=== PATIENT | female | born 1975 | race Two or more races ===

== ENCOUNTER 2016-08-28 04:27 | Emergency (ER) | payer BC ==
[~2016-08-28] VITALS: Ht 165.1 cm; Wt 61.2 kg
[~2016-08-28 04:27] MED LIST: NAPROXEN375 MG ORAL; ZOFRAN4 M1 ORAL
[2016-08-28] MEDS ORDERED: NKM (04:34)
[2016-08-28 04:38] VITALS: BP 129/88
[2016-08-28] MEDS ORDERED: Norco 5mg/325mg tab ORAL ONE (04:45)
--- NOTE | 2016-08-28 04:45 | Emergency Room Report ---
History of Present Illness General Chief Complaint: Female Urogenital Problems Source: Patient Present Illness HPI Is a 41-year-old female with a history of kidney stone in the past. She never required any surgery. She presents with chief complaint of suprapubic pain and left flank pain. She woke up tonight to go to the bathroom. Had pain in that area. Had urgency and frequency. Now with pain to the left flank. Also with nausea but no vomiting. No fever or chills. No hematuria. Pain is 9/10. Onset was about 2 hours ago. Allergies: Coded Allergies: No Known Allergies (Unverified , 08/28/16) Patient History Past Medical History: see triage record, old chart reviewed Past Surgical History: hysterectomy, other Pertinent Family History: none Social History: Denies: smoking Last Menstrual Period: n/a hysterectomy 3 years ago Now: No Immunizations: other Reviewed Nursing Documentation: PMH: Agreed, PSxH: Agreed Nursing Documentation-PMH Past Medical History: No History, Except For Review of Systems Eye: Denies: blurred vision, eye pain ENT: Denies: ear pain, nose congestion, throat swelling Respiratory: Denies: cough, shortness of breath Cardiovascular: Denies: chest pain, palpitations Gastrointestinal: Denies: abdominal pain, diarrhea, nausea, vomiting Genitourinary: Reports: dysuria, frequency, urgency Musculoskeletal: Denies: back pain, joint pain Skin: Denies: rash Neurological: Denies: headache, numbness Endocrine: Denies: increased thirst, increased urine Hematologic/Lymphatic: Denies: easy bruising All Other Systems: negative except mentioned in HPI Physical Exam Vital Signs Date Time Temp Pulse Resp B/P Pulse Ox O2 Delivery O2 Flow Rate FiO2 08/28/16 04:29 97.9 71 16 129/88 97 vitals normal Sp02 EP Interpretation: reviewed, normal General Appearance: well appearing, no apparent distress, alert Head: normocephalic, atraumatic Eyes: bilateral eye EOMI, bilateral eye PERRL ENT: hearing grossly normal, normal pharynx Neck: full range of motion, supple, no meningismus Respiratory: chest non-tender, lungs clear, normal breath sounds Cardiovascular #1: regular rate, rhythm, no murmur Gastrointestinal: normal bowel sounds, non tender, no mass, no organomegaly, no bruit, non-distended Musculoskeletal: back normal, gait/station normal, normal range of motion Psychiatric: mood/affect normal Skin: warm/dry Medical Decision Making Diagnostic Impression: Primary Impression: Ureteral calculus, left ER Course Patient presents with renal colic and ureteral stone. She is comfortable here. No evidence of infection. We'll discharge home. CT/MRI/US Diagnostic Results CT/MRI/US Diagnostic Results : Imaging Test Ordered: CT abdomen and pelvis Impression read by radiologist. 4 mm ureteral stone at left UVJ. Last Vital Signs Date Time Temp Pulse Resp B/P Pulse Ox O2 Delivery O2 Flow Rate FiO2 08/28/16 04:38 97.9 71 16 129/88 97 Status: improved Disposition: HOME, SELF-CARE Condition: Stable Scripts Tamsulosin Hcl (TAMSULOSIN HCL*) 0.4 Mg Cap.er.24h 0.4 MG ORAL BEDTIME, #21 CAP Prov: ELLA CAMPOS M.D. 08/28/16 Hydrocodone/Acetaminophen 5-325* (HYDROCODONE/ACETAMINOPHEN 5-325*) 1 Each Tablet 1 TAB ORAL Q6H Y for For Pain, #30 TAB 0 Refills Prov: ELLA CAMPOS M.D. 08/28/16 Additional Instructions: Followup your Dr. in 2-3 days. You may be referred to see a urologist if he can pass the stone. Return for fever, vomiting, unable to urinate or having fever. ELLA CAMPOS M.D. Aug 28, 2016 04:45
[2016-08-28 04:50] LABS: APPEARANCE,URINE CLEAR; KETONES,URINE NEGATIVE (NEGATIVE); LEUKOCYTE ESTERASE ,URINE 1+ (NEGATIVE); NITRITE,URINE NEGATIVE (NEGATIVE); PH,URINE 6 (4.5-8.0); PROTEIN,URINE NEGATIVE (NEGATIVE); UROBILINOGEN,URINE NORMAL MG/DL (0.0-1.0)
[2016-08-28 05:12] LABS: BACTERIA,URINE MANY /HPF; RBC,URINE 0-2 /HPF (0 - 2); SQUAMOUS EPITHELIAL CELL,UR MANY /LPF (NONE/OCC)
[2016-08-28] MEDS ORDERED: HYDROmorphone 1mg/ml Carpuject IM ONE (05:45)
[2016-08-28 06:05] VITALS: BP 115/73
[2016-08-28] MEDS ORDERED: TAMSULOSIN HCL0.4 MG ORAL (06:32)
[2016-08-28] MEDS ORDERED: HYDROCODON-ACE1 EA15 ORAL (06:32)
[2016-08-28 06:39] VITALS: BP 115/73
--- NOTE | 2016-08-28 11:09 | Diagnostic Imaging Report ---
Indication: Abdominal pain Technique: Spiral acquisitions obtained through the abdomen and pelvis. No oral or IV contrast utilized, per urinary stone protocol. Multiplanar reconstructions were generated. Total dose length product 625 mGycm. CTDIvol(s) 12 mGy. Dose reduction achieved using automated exposure control Comparison: 01/01/2015 Findings: There is now a 3 mm calculus at the left ureteral orifice. This was not evident previously. Only mild resultant hydroureter and mild hydronephrosis. No significant perinephric fat stranding. One of the previously demonstrated interpolar region calculi is no longer evident, presumably is the stone that is now in the distal ureter. Again demonstrated are multiple nonobstructing right renal calculi. No right hydronephrosis or hydroureter. Lack of IV contrast limits assessment of of the renal parenchyma. No gross renal parenchymal mass or cyst demonstrated. Lack of IV contrast limits assessment of the other solid organs. 10 mm cyst again demonstrated in segment 2 of the liver anteriorly. There is also adjacent but smaller subcentimeter low-attenuation lesion which is too small to characterize. Previously demonstrated segment 3 low-attenuation lesion that was adjacent to the fissure for the ligamentum teres is considerably smaller currently. Multiple right hepatic lobe lesions are again demonstrated. The gallbladder is nondistended. No gross calculi. No biliary ductal dilatation. The pancreas, spleen, adrenals are unremarkable. No retroperitoneal or mesenteric mass or adenopathy. No pelvic mass or adenopathy. The uterus is not visualized, presumed surgically absent. The appendix is normal. No evidence of diverticulosis or diverticulitis. No small bowel distention. No free or loculated intraperitoneal air fluid is evident. The included lung bases are clear. The bones are unremarkable. Impression: Positive for 3 mm left distal ureteral calculus, at the ureteral orifice. Resultant mild hydronephrosis and hydroureter Bilateral nonobstructive intrarenal calculi Multiple low-attenuation liver lesions, stable since 01/01/2015, most likely benign simple cysts or bile hamartomas. No further followup necessary Absent uterus This agrees with the preliminary interpretation provided overnight by [facility] teleradiology service. The CT scanner at [facility] is accredited by the [employer] and the scans are performed using protocols designed to limit radiation exposure to as low as reasonably achievable to attain images of sufficient resolution adequate for diagnostic evaluation.
== END 2016-08-28 06:39 | disposition home or self-care (01) ==
LOC: EMR 04:40
DX: N13.2 Hydronephrosis with renal and ureteral calculous obstruction (principal); K76.9 Liver disease, unspecified; Z90.710 Acquired absence of both cervix and uterus
CPT/HCPCS: 74176; 81003; 87086; 96372; 99284; J1170

== ENCOUNTER 2016-12-29 15:47 | Emergency (ER) | payer BC ==
[~2016-12-29] VITALS: Ht 162.6 cm; Wt 61.2 kg
[~2016-12-29 15:47] MED LIST changes: +HYDROCODON-ACE1 EA15 ORAL; +NKM; +TAMSULOSIN HCL0.4 MG ORAL
[2016-12-29 16:10] VITALS: BP 135/90
[2016-12-29] MEDS ORDERED: ROBAXIN-750750 MG PO (16:30)
[2016-12-29] MEDS ORDERED: IBUPROFEN600 MG ORAL (16:30)
[2016-12-29] MEDS ORDERED: SUDAFED 12 HOU120 M1 PO (16:30)
[2016-12-29] MEDS ORDERED: FLONASE ALLERG9.9 ML NS (16:30)
[2016-12-29 16:35] VITALS: BP 135/90
--- NOTE | 2016-12-29 21:30 | Emergency Room Report ---
History of Present Illness General Chief Complaint: Pain Source: Patient Present Illness HPI The patient is a 41-year-old female presenting for multiple complaints including subjective fevers, facial pain, nasal congestion, and right-sided neck pain. She states that the neck pain began one week prior for no known reason. Pain is a 8/0 dull ache and is worse with head movement. Does not radiate. She denies any neck stiffness. She states that the other symptoms have been ongoing for the past month and she has not received any treatment for it. She denies any other symptoms including visual changes Allergies: Coded Allergies: No Known Allergies (Unverified , 08/28/16) Patient History Past Medical History: see triage record Pertinent Family History: none Last Menstrual Period: NA Now: No Reviewed Nursing Documentation: PMH: Agreed, PSxH: Agreed Nursing Documentation-PMH Past Medical History: No Stated History Review of Systems All Other Systems: negative except mentioned in HPI Physical Exam Vital Signs Date Time Temp Pulse Resp B/P (MAP) Pulse Ox O2 Delivery O2 Flow Rate FiO2 12/29/16 16:02 97.9 89 15 132/89 99 Room Air Sp02 EP Interpretation: reviewed, normal General Appearance: no apparent distress, alert, GCS 15, non-toxic Head: normocephalic, atraumatic Eyes: bilateral eye normal inspection, bilateral eye PERRL ENT: hearing grossly normal, normal pharynx, no angioedema, normal voice, uvula midline, nasal congestion, other - TTP over frontal sinuses Neck: normal inspection, full range of motion, no bony tend, supple/symm/no masses, tender lateral - R sided Respiratory: chest non-tender, lungs clear, normal breath sounds, speaking full sentences Musculoskeletal: back normal, gait/station normal, normal range of motion, non- tender Neurologic: alert, oriented x3, responsive, motor strength/tone normal, sensory intact, speech normal Psychiatric: judgement/insight normal, memory normal, mood/affect normal, no suicidal/homicidal ideation Skin: normal color, no rash, warm/dry, well hydrated Lymphatic: no adenopathy Medical Decision Making PA Attestation Dr. Malone is my supervising physician. Patient management was discussed with my supervising physician Diagnostic Impression: Primary Impression: Muscle strain Additional Impression: Sinusitis Qualified Codes: J01.90 - Acute sinusitis, unspecified ER Course The patient is a 41-year-old female presenting for multiple complaints including subjective fevers, facial pain, nasal congestion, and right-sided neck pain. Differential diagnoses considered but not limited to: Acute sinusitis, pharyngitis, rhinitis, bronchitis, muscle strain, meningitis, among others PE: NAD. Afebrile. HEENT: + nasal congestion and TTP over frontal sinuses. TTP over the R cervical paraspinal muscles. Otherwise exam unremarkable She will be treated for sinusitis and muscle strain. ER precautions given Last Vital Signs Date Time Temp Pulse Resp B/P (MAP) Pulse Ox O2 Delivery O2 Flow Rate FiO2 12/29/16 16:35 97.9 77 15 135/90 99 Room Air Status: improved Disposition: HOME, SELF-CARE Condition: Improved Scripts Pseudoephedrine Hcl (SUDAFED 12 HOUR) 120 Mg Tablet.er 120 MG PO Q12HR, #20 TAB Prov: QUENTIN RODRIGUEZ P.A. 12/29/16 Fluticasone Propionate (Flonase Allergy Relief) 9.9 Ml [place].susp 1 SPRAYS NS DAILY, #10 ML Prov: QUENTIN RODRIGUEZ P.A. 12/29/16 Methocarbamol* (ROBAXIN-750*) 750 Mg Tablet 750 MG PO TID, #21 TAB 0 Refills Prov: BRANDANANQUENTIN P.A. 12/29/16 Ibuprofen* (MOTRIN*) 600 Mg Tablet 600 MG ORAL Q8H Y for For Pain, #30 TAB 0 Refills Prov: BRANDANANQUENTIN P.A. 12/29/16 Referrals: [facility],REFERRING (PCP) Patient Instructions: Sinusitis, Adult, Muscle Strain Additional Instructions: I discussed my findings with the patient. All questions and concerns have been answered. Treatment and medication compliance have been addressed. I advised the patient that they need to follow up with PMD in 3-5 days. Return to ED if symptoms worsen, new symptoms arise such as neck stiffness or fever, or if needed for any reason. Patient verbalized understanding of discharge instructions. QUENTIN RODRIGUEZ Dec 29, 2016 21:30
== END 2016-12-29 19:44 | disposition home or self-care (01) ==
LOC: EMR 16:30
DX: S16.1XXA Strain of muscle, fascia and tendon at neck level, initial encounter (principal); J32.9 Chronic sinusitis, unspecified; X58.XXXA Exposure to other specified factors, initial encounter; Y92.89 Other specified places as the place of occurrence of the external cause
CPT/HCPCS: 99284

== ENCOUNTER → 2018-06-10 | Emergency (ER) | payer BC ==
[~2018-06-10] VITALS: Ht 160 cm; Wt 59.0 kg
[~2018-06-10] MED LIST changes: +ALBUTEROL SULF8.5 GM INH; +Albuterol ud Inhalation HHN ONE; +FLONASE ALLERG9.9 ML NS; +IBUPROFEN600 MG ORAL; +Ipratropium 0.02% Inh Soln 2.5ml UD HHN ONE; +PREDNISONE20 MG ORAL; +ROBAXIN-750750 MG PO; +SUDAFED 12 HOU120 M1 PO
[2018-06-10 12:11] VITALS: BP 140/70
--- NOTE | 2018-06-10 14:41 | Diagnostic Imaging Report ---
Indication: Chest pain Technique: One view of the chest Comparison: none Findings: Lungs and pleural spaces are clear. Heart size is normal Impression: No acute process
--- NOTE | 2018-06-10 15:58 | Emergency Room Report ---
History of Present Illness General Chief Complaint: Chest Pain Source: Patient Present Illness HPI 42-year-old female presents ED for evaluation. Complaining of chest tightness and pain 3 days. Pain is dull, midsternal, 5 out of 10, nonradiating. Notes pain with deep breaths. Denies fevers or chills. Denies cough. Denies sick contacts or recent travel. No other aggravating relieving factors. Denies any other associated symptoms Allergies: Coded Allergies: No Known Allergies (Unverified , 08/28/16) Patient History Past Medical History: none Past Surgical History: none Pertinent Family History: none Social History: Denies: smoking, alcohol use, drug use Now: No : 6 Para: 6 Immunizations: UTD Reviewed Nursing Documentation: PMH: Agreed; PSxH: Agreed Nursing Documentation-PMH Past Medical History: No Stated History Review of Systems All Other Systems: negative except mentioned in HPI Physical Exam Vital Signs Date Time Temp Pulse Resp B/P (MAP) Pulse Ox O2 Delivery O2 Flow Rate FiO2 06/10/18 11:48 98.2 88 18 168/90 97 Room Air 06/10/18 12:23 21 Sp02 EP Interpretation: reviewed, normal General Appearance: no apparent distress, alert, GCS 15, non-toxic Head: normocephalic, atraumatic Eyes: bilateral eye normal inspection, bilateral eye PERRL ENT: hearing grossly normal, normal pharynx, no angioedema, normal voice Neck: full range of motion, supple/symm/no masses Respiratory: chest non-tender, normal breath sounds, decreased breath sounds, speaking full sentences Cardiovascular #1: regular rate, rhythm, no edema Cardiovascular #2: 2+ carotid (R), 2+ carotid (L), 2+ radial (R), 2+ radial (L) , 2+ dorsalis pedis (R), 2+ dorsalis pedis (L) Gastrointestinal: normal bowel sounds, non tender, soft, non-distended, no guarding, no rebound Rectal: deferred Genitourinary: normal inspection, no CVA tenderness Musculoskeletal: back normal, gait/station normal, normal range of motion, non- tender Neurologic: alert, oriented x3, responsive, motor strength/tone normal, sensory intact, speech normal Psychiatric: judgement/insight normal, memory normal, mood/affect normal, no suicidal/homicidal ideation Reflexes: 3+ bicep (R), 3+ bicep (L), 3+ tricep (R), 3+ tricep (L), 3+ knee (R) , 3+ knee (L) Skin: normal color, no rash, warm/dry, well hydrated Lymphatic: no adenopathy Medical Decision Making Diagnostic Impression: Primary Impression: Bronchitis ER Course Hospital Course 42-year-old female presents to ED complaining of pain, chest tightness Differential diagnoses include: URI, bronchitis, asthma/COPD, pneumonia Clinical course Patient placed on stretcher. After initial history and physical I ordered prednisone and nebulizer treatment. Chest x-raynormal sinus rhythm no acute ischemic changes interpreted by me Chest x-rayno infiltrate or consolidation On reassessment breathing improved. Patient feels better. Consideration for bronchitis. Discussed findings with patient. Safe for discharge close outpatient follow- up. we'll provide referrals Diagnosis - bronchitis Stable and discharged home with prescriptions for Rx prednisone, albuterol. Instructed to followup with PMD. Return to ED if symptoms recur or worsen EKG Diagnostic Results Rate: normal Rhythm: NSR ST Segments: no acute changes ASA given to the pt in ED: No Rhythm Strip Diag. Results EP Interpretation: yes Rhythm: NSR, no PVC's, no ectopy Chest X-Ray Diagnostic Results Chest X-Ray Diagnostic Results : Chest X-Ray Ordered: Yes # of Views/Limited/Complete: 1 View Indication: Shortness of Breath EP Interpretation: Yes Interpretation: no consolidation, no effusion, no pneumothorax, no acute cardiopulmonary disease Impression: No acute disease Electronically Signed by: Electronically signed by Inder Arceo MD Last Vital Signs Date Time Temp Pulse Resp B/P (MAP) Pulse Ox O2 Delivery O2 Flow Rate FiO2 06/10/18 12:23 72 18 100 Room Air 21 06/10/18 12:11 97.9 140/70 Status: improved Disposition: HOME, SELF-CARE Condition: Stable Scripts Prednisone* (PREDNISONE*) 20 Mg Tablet 40 MG ORAL DAILY, #10 TAB Prov: Inder Arceo MD 06/10/18 Albuterol Sulfate* (ALBUTEROL SULFATE MDI*) 8.5 Gm Hfa.aer.ad 2 PUFF INH Q6H, #1 EA 0 Refills Prov: Inder Arceo MD 06/10/18 Referrals: [facility] Fregoso. [facility] Patient Instructions: Acute Bronchitis, [id number] Inder Arceo MD Jun 10, 2018 15:58
== END | disposition home or self-care (01) ==
LOC: EMR 12:26
DX: J40 Bronchitis, not specified as acute or chronic (principal)
CPT/HCPCS: 71045; 93005; 94640; 99284

== ENCOUNTER 2019-08-26 10:46 | Emergency (ER) | payer BC ==
[~2019-08-26] VITALS: Ht 162.6 cm; Wt 61.2 kg
[~2019-08-26 10:46] MED LIST changes: -Albuterol ud Inhalation HHN ONE; -Ipratropium 0.02% Inh Soln 2.5ml UD HHN ONE
--- NOTE | 2019-08-26 11:13 | NUR ---
ED Nurse Note: Patient came to ED from home due to chest pain with nausea, vomiting and headache since yesterday. Per patient pain is at epigastric and chest area and radiates to left side of rib area. Patient is AAOx4 and ambulatory. Patient stated that she took tylenol for the pain last night but it did not lessen the pain.
--- NOTE | 2019-08-26 11:14 | NUR ---
ED Nurse Note: ERMD at bedside
[2019-08-26] MEDS ORDERED: Ketorolac 30mg Inj IV ONE (11:15)
--- NOTE | 2019-08-26 11:15 | NUR ---
ED Nurse Note: Accompanied patient to the restroom
--- NOTE | 2019-08-26 11:18 | NUR ---
ED Nurse Note: Xray at bedside
[2019-08-26 11:21] VITALS: BP 117/81
--- NOTE | 2019-08-26 11:23 | Emergency Room Report ---
History of Present Illness General Chief Complaint: Chest Pain Source: Patient Present Illness HPI 44-year-old female, no past medical history has a surgical history of hysterectomy presents with chest tightness at 11 AM not aggravated with exercise it alleviated with certain positions severity is mild, intermittent, patient denies any dyspnea on exertion no family history of cardiac disease patient denies any diaphoresis no nausea no vomiting Allergies: Coded Allergies: No Known Allergies (Unverified , 08/28/16) COVID-19 Screening Contact w/high risk pt: No Recent Travel to affected area: No Experienced COVID-19 symptoms?: No COVID-19 Testing performed [employer]: No Patient History Past Medical History: see triage record Now: No Reviewed Nursing Documentation: PMH: Agreed; PSxH: Agreed Nursing Documentation-PMH Past Medical History: No History, Except For Review of Systems All Other Systems: negative except mentioned in HPI Physical Exam Vital Signs Date Time Temp Pulse Resp B/P (MAP) Pulse Ox O2 Delivery O2 Flow Rate FiO2 08/26/19 10:51 97.9 77 18 139/88 (105) 100 Room Air Sp02 EP Interpretation: reviewed, normal General Appearance: well appearing, no apparent distress, alert Head: normocephalic, atraumatic Eyes: bilateral eye PERRL, bilateral eye EOMI ENT: uvula midline, moist mucus membranes Neck: supple, thyroid normal, supple/symm/no masses Respiratory: lungs clear, no respiratory distress, no retraction, no accessory muscle use Cardiovascular #1: normal peripheral pulses, regular rate, rhythm, no edema, no gallop, no murmur Gastrointestinal: non tender, soft, no guarding, no rebound Musculoskeletal: normal inspection Neurologic: alert, oriented x3 Psychiatric: mood/affect normal Skin: no rash, warm/dry Medical Decision Making Diagnostic Impression: Primary Impression: Chest pain Qualified Codes: R07.9 - Chest pain, unspecified Additional Impression: UTI (urinary tract infection) Qualified Codes: N39.0 - Urinary tract infection, site not specified ER Course No evidence of ACS, pulmonary embolism, pneumothorax, pneumonia. Historically not abrupt in onset, tearing or ripping, pulses symmetric, no evidence of aortic dissection. Patient's pain resolved in the ED. Patient also complained of dysuria, will treat patient for a possible UTI. Disposition home with return precautions patient will get an outpatient stress test Laboratory Tests Test 08/26/19 11:00 White Blood Count 7.8 K/UL (4.8-10.8) Red Blood Count 4.87 M/UL (4.20-5.40) Hemoglobin 15.3 G/DL (12.0-16.0) Hematocrit 42.7 % (37.0-47.0) Mean Corpuscular Volume 88 FL (80-99) Mean Corpuscular Hemoglobin 31.4 PG (27.0-31.0) H Mean Corpuscular Hemoglobin Concent 35.7 G/DL (32.0-36.0) Red Cell Distribution Width 10.9 % (11.6-14.8) L Platelet Count 255 K/UL (150-450) Mean Platelet Volume 6.6 FL (6.5-10.1) Neutrophils (%) (Auto) 67.1 % (45.0-75.0) Lymphocytes (%) (Auto) 24.6 % (20.0-45.0) Monocytes (%) (Auto) 5.3 % (1.0-10.0) Eosinophils (%) (Auto) 1.6 % (0.0-3.0) Basophils (%) (Auto) 1.4 % (0.0-2.0) Sodium Level 141 MMOL/L (136-145) Potassium Level 3.9 MMOL/L (3.5-5.1) Chloride Level 105 MMOL/L (98-107) Carbon Dioxide Level 27 MMOL/L (21-32) Anion Gap 9 mmol/L (5-15) Blood Urea Nitrogen 7 mg/dL (7-18) Creatinine 0.8 MG/DL (0.55-1.30) Estimated Glomerular Filtration Rate > 60 mL/min (>60) Glucose Level 105 MG/DL (74-106) Calcium Level 8.8 MG/DL (8.5-10.1) Total Bilirubin 0.5 MG/DL (0.2-1.0) Aspartate Amino Transferase (AST) 18 U/L (15-37) Alanine Aminotransferase (ALT) 22 U/L (12-78) Alkaline Phosphatase 76 U/L (46-116) Troponin I 0.000 ng/mL (0.000-0.056) Pro-B-Type Natriuretic Peptide 187 pg/mL (0-125) H Total Protein 7.7 G/DL (6.4-8.2) Albumin 4.2 G/DL (3.4-5.0) Globulin 3.5 g/dL Albumin/Globulin Ratio 1.2 (1.0-2.7) Lipase 159 U/L (73-393) Human Chorionic Gonadotropin, Quant < 1 mIU/mL (1-6) L EKG Diagnostic Results EKG Time: 10:49 EP Interpretation: NSR, rate 75, QTc 415, no acute ST elevations, normal axis Rhythm Strip Diag. Results Rhythm Strip Time: 11:22 EP Interpretation: yes Rate: 67 Rhythm: NSR, no PVC's, no ectopy Chest X-Ray Diagnostic Results Chest X-Ray Diagnostic Results : Chest X-Ray Ordered: Yes # of Views/Limited/Complete: 1 View Indication: Chest Pain EP Interpretation: Yes Interpretation: no consolidation, no effusion, no pneumothorax, no acute cardiopulmonary disease Impression: No acute disease Electronically Signed by: Samuel Willett MD Last Vital Signs Date Time Temp Pulse Resp B/P (MAP) Pulse Ox O2 Delivery O2 Flow Rate FiO2 08/26/19 10:51 97.9 77 18 139/88 (105) 100 Room Air Disposition: HOME, SELF-CARE Condition: Stable Scripts Cephalexin* (KEFLEX*) 500 Mg Tablet 500 MG ORAL EVERY 6 HOURS, #20 CAP Prov: Samuel Willett MD 08/26/19 Referrals: [facility] Patient Instructions: Nonspecific Chest Pain Additional Instructions: The patient was provided with discharge instructions, notified to follow-up with a primary care doctor and or specialist in the next 24-48 hours, and to return to the ED if they have worsening of their symptoms. Please note that this report is being documented using [employer] technology. This can lead to erroneous entry secondary to incorrect interpretation by the dictating instrument. Samuel Willett MD August 26, 2019 11:23
[2019-08-26 11:35] LABS: BASOPHILS % (AUTO) 1.4 % (0.0-2.0); EOSINOPHILS % (AUTO) 1.6 % (0.0-3.0); HEMATOCRIT 42.7 % (37.0-47.0); HEMOGLOBIN 15.3 G/DL (12.0-16.0); LYMPHOCYTES % (AUTO) 24.6 % (20.0-45.0); MEAN CORPUSCULAR VOLUME 88 FL (80-99); MONOCYTES % (AUTO) 5.3 % (1.0-10.0); NEUTROPHILS % (AUTO) 67.1 % (45.0-75.0); PLATELET COUNT 255 K/UL (150-450); RED BLOOD COUNT 4.87 M/UL (4.20-5.40); RED CELL DISTRIBUTION WIDTH 10.9 % (11.6-14.8); WHITE BLOOD COUNT 7.8 K/UL (4.8-10.8)
[2019-08-26 12:04] LABS: ALANINE AMINOTRANSFERASE 22 U/L (12-78); ALBUMIN 4.2 G/DL (3.4-5.0); ALBUMIN/GLOBULIN RATIO 1.2 (1.0-2.7); ALKALINE PHOSPHATASE 76 U/L (46-116); ANION GAP 9 mmol/L (5-15); ASPARTATE AMINO TRANSFERASE 18 U/L (15-37); BILIRUBIN,TOTAL 0.5 MG/DL (0.2-1.0); BLOOD UREA NITROGEN 7 mg/dL (7-18); CALCIUM 8.8 MG/DL (8.5-10.1); CARBON DIOXIDE 27 MMOL/L (21-32); CHLORIDE 105 MMOL/L (98-107); CREATININE 0.8 MG/DL (0.55-1.30); POTASSIUM 3.9 MMOL/L (3.5-5.1); SODIUM 141 MMOL/L (136-145)
[2019-08-26] MEDS ORDERED: CEPHALEXIN500 M1 ORAL (12:22)
[2019-08-26 12:30] LABS: APPEARANCE,URINE CLEAR; BILIRUBIN, URINE NEGATIVE (NEGATIVE); COLOR,URINE PALE YELLOW; GLUCOSE, URINE (UA) NEGATIVE (NEGATIVE); KETONES,URINE NEGATIVE (NEGATIVE); LEUKOCYTE ESTERASE ,URINE NEGATIVE (NEGATIVE); NITRITE,URINE NEGATIVE (NEGATIVE); PH,URINE 7 (4.5-8.0); PROTEIN,URINE NEGATIVE (NEGATIVE); UROBILINOGEN,URINE NORMAL MG/DL (0.0-1.0)
--- NOTE | 2019-08-26 14:24 | Diagnostic Imaging Report ---
Indication: Chest pain Technique: One view of the chest Comparison: 06/10/2018 Findings: Lungs and pleural spaces are clear. Heart size is normal. No significant change Impression: No acute process
[2019-08-26 17:13] VITALS: BP 108/87
== END 2019-08-26 12:30 | disposition home or self-care (01) ==
LOC: EMR 11:35
DX: R07.9 Chest pain, unspecified (principal); N39.0 Urinary tract infection, site not specified; Z90.710 Acquired absence of both cervix and uterus
CPT/HCPCS: 36415; 71045; 80053; 81003; 83690; 83880; 84484; 84702; 85025; 93005; 96374; 99284; J1885